=== PATIENT | male | born 1995 | race African-American/Black ===

== ENCOUNTER 2016-07-19 09:15 | Emergency (ER) | payer MEDICAID, OTHER, SELFPAY ==
[~2016-07-19] VITALS: Ht 162.6 cm; Wt 65.2 kg
[2016-07-19] MEDS ORDERED: ZYRT10CA PO (11:08)
[2016-07-19] MEDS ORDERED: FLON1SPR (11:08)
[2016-07-19 11:20] VITALS: BP 125/82
== END 2016-07-19 11:21 | disposition home or self-care (01) ==
LOC: M ED 10:19
DX: J30.2 Other seasonal allergic rhinitis (principal); F17.200 Nicotine dependence, unspecified, uncomplicated; Z79.899 Other long term (current) drug therapy

== ENCOUNTER 2016-07-24 00:26 | Emergency (ER) | payer MEDICAID ==
[~2016-07-24 00:26] MED LIST: FLON1SPR; ZYRT10CA PO
== END 2016-07-24 01:14 | disposition left against medical advice (07) ==
LOC: EDBD → M ED 00:26
DX: Z53.29 Procedure and treatment not carried out because of patient's decision for other reasons (principal)

== ENCOUNTER 2016-12-10 19:16 | Emergency (ER) | payer MEDICAID, OTHER ==
[~2016-12-10] VITALS: Ht 162.6 cm; Wt 75.0 kg
[2016-12-10] MEDS ORDERED: DICYCLOMINE INJ 20MG/2ML (J0500) IM ONE (20:30)
[2016-12-10 20:34] LABS: BASO % 0.4 % (0.0-1.0); EOS % 0.2 % (0.0-3.0); IMMATURE GRANULOCYTE % 0.2 % (0-0); LYMPH # 2.2 10^3/uL (1.5-6.5); LYMPH % 26.9 % (24.0-44.0); MEAN CORPUSCULAR HEMOGLOBIN 28.9 pg (27.0-33.0); MEAN CORPUSCULAR HGB CONC 33.6 g/dl (32.0-36.5); MEAN CORPUSCULAR VOLUME 86.1 fl (80.0-96.0); MONO # 0.6 10^3/uL (0.0-0.8); MONO % 7.9 % (0.0-5.0); NEUTROPHILS # 5.3 10^3/uL (1.8-7.7); NEUTROPHILS % 64.4 % (36.0-66.0); PLATELET COUNT, AUTOMATED 201 10^3/uL (150-450); RED CELL DISTRIBUTION WIDTH 13.4 % (11.5-14.5); WHITE BLOOD COUNT 8.2 10^3/uL (4.0-10.0)
[2016-12-10 20:52] LABS: ALBUMIN 4.3 GM/DL (3.2-5.2); ALBUMIN/GLOBULIN RATIO 1.48 (1.00-1.93); ALKALINE PHOSPHATASE 57 U/L (45-117); ALT/SGPT 26 U/L (12-78); ANION GAP 7 MEQ/L (8-16); AST/SGOT 22 U/L (7-37); BILIRUBIN,DIRECT 0.2 MG/DL (0.0-0.2); BILIRUBIN,TOTAL 0.5 MG/DL (0.2-1.0); BLOOD UREA NITROGEN 8 MG/DL (7-18); CALCIUM LEVEL 9.2 MG/DL (8.5-10.1); CARBON DIOXIDE LEVEL 29 MEQ/L (21-32); CHLORIDE LEVEL 106 MEQ/L (98-107); CREATININE FOR GFR 1.09 MG/DL (0.70-1.30); GLOMERULAR FILTRATION RATE > 60.0 (>60); GLUCOSE, FASTING 81 MG/DL (70-105); POTASSIUM SERUM 3.6 MEQ/L (3.5-5.1); SODIUM LEVEL 142 MEQ/L (136-145); TOTAL PROTEIN 7.2 GM/DL (6.4-8.2)
[2016-12-10 21:39] VITALS: BP 123/76
== END 2016-12-10 21:37 | disposition home or self-care (01) ==
LOC: M ED 19:16 → EDBD 19:16 → M ED 21:37
DX: R10.9 Unspecified abdominal pain (principal); F17.210 Nicotine dependence, cigarettes, uncomplicated; Z98.890 Other specified postprocedural states; Z91.018 Allergy to other foods

== ENCOUNTER 2017-07-16 20:00 | Emergency (ER) | payer SELFPAY, OTHER | END 2017-07-16 21:46 | disposition home or self-care (01) | LOC: M ED 20:00 | DX: M76.52 Patellar tendinitis, left knee (principal); Z72.0 Tobacco use; Z91.018 Allergy to other foods | CPT/HCPCS: 73564 ==

== ENCOUNTER → 2017-07-29 | Outpatient (CLI) | payer MEDICAID, SELFPAY | LOC: M OUTALCOH 07:57 | DX: F12.20 Cannabis dependence, uncomplicated (principal) ==

== ENCOUNTER 2017-08-05 11:15 | Outpatient (RCR) | payer MEDICAID, SELFPAY | END 2017-08-06 | LOC: M OUTALCOH 11:15 | DX: F12.20 Cannabis dependence, uncomplicated (principal); F17.200 Nicotine dependence, unspecified, uncomplicated | CPT/HCPCS: 90834 ==

== ENCOUNTER 2017-08-17 10:56 | Outpatient (RCR) | payer MEDICAID | END 2017-09-06 | LOC: M OUTALCOH 08-18 10:00 | DX: F12.20 Cannabis dependence, uncomplicated (principal); F17.200 Nicotine dependence, unspecified, uncomplicated ==

== ENCOUNTER 2017-10-12 16:00 | Outpatient (RCR) | payer MEDICAID | END 2017-11-06 | LOC: M OUTALCOH 10-19 16:00 | DX: F12.20 Cannabis dependence, uncomplicated (principal); F17.200 Nicotine dependence, unspecified, uncomplicated ==

== ENCOUNTER 2017-11-07 14:22 | Outpatient (RCR) | payer MEDICAID | END 2017-12-07 | LOC: M OUTALCOH 11-09 16:00 | DX: F12.20 Cannabis dependence, uncomplicated (principal); F17.200 Nicotine dependence, unspecified, uncomplicated ==

== ENCOUNTER → 2017-11-15 | Outpatient (REF) | payer OTHER ==
[2017-11-18 10:53] LABS: F089-IGE MUSTARD <0.10 kU/L (Class 0)
== END ==
LOC: M LAB REF 12:34
DX: Z91.018 Allergy to other foods (principal)

== ENCOUNTER 2019-02-18 07:14 | Emergency (ER) | payer MEDICAID, OTHER ==
[~2019-02-18] VITALS: Ht 165.1 cm; Wt 61.6 kg
[2019-02-18 07:20] VITALS: BP 130/71
[2019-02-18] MEDS ORDERED: POLYSOL OD (07:49)
== END 2019-02-18 08:07 | disposition home or self-care (01) ==
LOC: M ED 07:14
DX: H10.11 Acute atopic conjunctivitis, right eye (principal); Z91.018 Allergy to other foods

== ENCOUNTER → 2020-10-17 | Outpatient (CLI) | payer OTHER ==
[~2020-10-17] MED LIST changes: +POLYSOL OD
== END ==
LOC: M LABSMTC 11:29
PROVIDERS: ATTEND Pediatrics
DX: Z20.822 Contact with and (suspected) exposure to COVID-19 (principal)